=== PATIENT | female | born 1940 | race Caucasian/White ===

== ENCOUNTER 2022-02-08 12:38 | Observation (INO) | payer OTHER ==
[~2022-02-08] VITALS: Ht 165.1 cm; Wt 65.8 kg
[2022-02-08 12:42] VITALS: BP_SYST 127
--- NOTE | 2022-02-08 13:00 | NUR ---
C/O Chest pain at 0800, sub-sternal non-radiating. 3 doses of Nitro given, 325mg ASA given in route, patient in facility for Right Hip Fx. Patient is AOx4 in no acute distress and or discomfort.
--- NOTE | 2022-02-08 13:05 | NUR ---
EKG done at bedside, to read
--- NOTE | 2022-02-08 13:26 | NUR ---
Assisted patient with grabiel-care post void
[2022-02-08 13:58] LABS: BASOPHILS # (AUTO) 0.1 K/uL (0.0-0.2); BASOPHILS % (AUTO) 0.6 % (0.0-2.0); EOSINOPHILS # (AUTO) 0.8 K/uL (0.0-0.4); EOSINOPHILS % (AUTO) 6.5 % (0.0-4.0); HEMATOCRIT 31.8 % (36-48); HEMOGLOBIN 9.9 g/dL (12.0-16.0); LYMPHOCYTES # (AUTO) 1.7 K/uL (1.0-5.5); LYMPHOCYTES % (AUTO) 14.6 % (20.5-51.5); MEAN CORPUSCULAR HEMOGLOBIN 21 pg (27-31); MEAN CORPUSCULAR HGB CONC 31 % (32-36); MEAN CORPUSCULAR VOLUME 66 fL (79.0-98.0); MONOCYTES # (AUTO) 1.1 K/uL (0.0-1.0); MONOCYTES % (AUTO) 9.5 % (1.7-9.3); NEUTROPHILS # (AUTO) 8.2 K/uL (1.8-7.7); NEUTROPHILS % (AUTO) 68.8 % (40.0-70.0); PLATELET COUNT (AUTO) 388 K/uL (130-430); RED BLOOD CELL COUNT(AUTO) 4.81 MIL/uL (4.2-6.2); RED CELL DISTRIBUTION WIDTH 14.4 % (9.0-15.0); WHITE BLOOD COUNT (AUTO) 11.9 K/uL (4.8-10.8)
[2022-02-08] MEDS ORDERED: traMADol HCL HCL 50 MG TABLET (ULTRAM) PO ONE (14:00)
[2022-02-08 14:08] LABS: ANION GAP 5 (5-15); CALCIUM 9.3 mg/dL (8.4-11.0); CHLORIDE 103 mmol/L (98-107); CREATININE 0.96 mg/dL (0.55-1.30); GLUCOSE 103 mg/dL (70-99); POTASSIUM 4.2 mmol/L (3.5-5.1); UREA NITROGEN, BLOOD 21 mg/dL (8-21)
[2022-02-08 14:13] LABS: ALANINE AMINOTRANSFERASE 43 U/L (12-78); ALBUMIN 2.9 g/dL (3.4-4.8); ASPARTATE AMINOTRANSFERASE 22 U/L (10-37); TOTAL BILIRUBIN 0.4 mg/dL (0.0-1.0)
--- NOTE | 2022-02-08 15:06 | NUR ---
RECEIVED PT FROM QUINTEN MANDUJANO. ASSUMED CARE.
--- NOTE | 2022-02-08 15:30 | NUR ---
# 22 gauge angiocath placed to RFA. Use of asceptic technique. Opsite placed over site. Blood return noted. Blood for lab drawn from site. Flushed with 10 cc of normal saline. No evidence of infiltration noted. Patient tolerated well.
[2022-02-08] MEDS ORDERED: PERCOCET PO (16:38)
[2022-02-08] MEDS ORDERED: FER300L PO (16:38)
[2022-02-08] MEDS ORDERED: ASPI-1393 PO (16:38)
[2022-02-08] MEDS ORDERED: LYR50 PO (16:38)
[2022-02-08] MEDS ORDERED: DOCU-144 PO (16:38)
[2022-02-08] MEDS ORDERED: LOSA50TA3 PO (16:38)
[2022-02-08] MEDS ORDERED: CELE200C PO (16:38)
[2022-02-08] MEDS ORDERED: PERC10 PO (16:38)
[2022-02-08] MEDS ORDERED: VITA1CAP PO (16:38)
[2022-02-08] MEDS ORDERED: NITSL SL (16:38)
[2022-02-08] MEDS ORDERED: TRAM50TA PO (16:38)
[2022-02-08] MEDS ORDERED: MULT-1089 PO (16:38)
[2022-02-08] MEDS ORDERED: LOVA40TA75 PO (16:38)
--- NOTE | 2022-02-08 16:39 | NUR ---
MED REC AND BELONGINGS COMPLETED.
--- NOTE | 2022-02-08 17:09 | NUR ---
Admit bed requested Patient will be admitted to care of . Admitted to TELEMETRY unit. Diagnosis RULE OUT ACS Inpatient (Yes or No) NO Observation (Yes or No) YES Orientation concerns or request close to nursing station (Yes or No) NO Covid Status PENDING On vent or bipap NO Isolation requirements PENDING Needs a sitter NO From Home (Yes or if No enter name of facility) [facility] Requires Dialysis (Yes or No) NO Med Rec Completed (Yes of No) YES
--- NOTE | 2022-02-08 19:28 | NUR ---
ENDORSED PT TO QUINTEN ROJAS. ALL QUESTIONS AND CONCERNS ADDRESSED.
--- NOTE | 2022-02-08 20:08 | NUR ---
THIS IS TELEMETRY OBSERVATION NOTE FOR AN 81 YEAR OLD FEMALE RULE OUT ACS STATUS POST RIGHT HIP SURGERY AT ANOTHER FACILITY. PATIENT NOTES RIGHT LEG AND CHEST PAIN ON ADMISSION. TOOK TRAMADOL AT 2 PM AND HAD POSITIVE RELIEF.
--- NOTE | 2022-02-08 20:08 | NUR ---
Patient will be admitted to care of MD [facility]. Admitted to TELE unit. Will go to room 119A. Complete and up to date summary report printed. SBAR report given at bedside to QUINTEN [place] with opportunity for questions. Son at bedside during admit to floor.
[2022-02-08 20:10] VITALS: BP_SYST 149
[2022-02-09] VITALS (7 sets, daily range): BP systolic 124–152
[2022-02-09] MEDS ORDERED: ACETAMINOPHEN 325 MG TABLET PO PRN
[2022-02-09] MEDS ORDERED: ONDANSETRON HCL 4 MG/2 ML VIAL IVP PRN
[2022-02-09] MEDS ORDERED: NALOXONE HCL 0.4 MG/ML AMP (NARCAN) IVP PRN
[2022-02-09] MEDS ORDERED: TEMAZEPAM 7.5 MG CAPSULE PO PRN
[2022-02-09] MEDS ORDERED: MORPHINE 2 MG/ML INJ. SYRINGE IVP PRN
[2022-02-09] MEDS: 0.45% NS 500 ML IV SCH ×3 (02:51→13:20)
--- NOTE | 2022-02-09 05:40 | NUR ---
CONSULTATION PAGED/CALLED Reason for Consultation: RULE OUT ACS Person Who was Notified: DR Remington BUTLER Consulting Physician: MISTY Auto [employer] Repairer Specialty: Ordering Physician: HIRAM
[2022-02-09] MEDS: NITROGLYCERIN 0.4 MG TAB.SUBL SL PRN ×2 (07:51→08:03)
--- NOTE | 2022-02-09 07:51 | NUR ---
PT GIVEN NITRO SL FOR CHEST PAIN.
--- NOTE | 2022-02-09 08:03 | NUR ---
ANOTHER DOSE OF NITRO GIVEN.
--- NOTE | 2022-02-09 09:36 | NUR ---
PT GIVEN IVP MORPHINE AFTER A NEW IV ACCESS STARTED.
--- NOTE | 2022-02-09 09:52 | NUR ---
TALKED TO LUMBER STICKER RE PT'S FAMILY WANTS TO TRANSFER PT TO [facility].
--- NOTE | 2022-02-09 10:03 | NUR ---
PA OF DR BUTLER HERE AND SEEN PT. CALLED [facility] FOR THE COPY OF THE EKG.
--- NOTE | 2022-02-09 10:10 | NUR ---
TALKED TO PT'S DAUGHTER AND SON RE PROCESS OF TRANSFERRING PT TO OTHER HOSPITAL. THAT WE NEED ACCEPTING DOCTOR, ROOM NUMBER AND WE ARE WORKING ON THE ORDER TO TRANSFER AND APPROVAL FROM INSURANCE.
[2022-02-09] MEDS ORDERED: ATORVASTATIN 20 MG TABLET PO ONE ×3 (10:30→13:15)
[2022-02-09] MEDS ORDERED: ASPIRIN 81 MG TAB.CHEW PO ONE (10:30)
--- NOTE | 2022-02-09 10:35 | NUR ---
SPOKE WITH DR GANDHI, DR GUADALUPE IS COVERING. DR GANDHI SAID IF PT NEEDS HIGHER LEVEL OF CARE PER [employer] THEN WE CAN TRANSFER PT. IF NOT, PT WILL STAY. Addendum: 02/09/22 at 1036 by Bony Villarreal RN INFORMED PA OF DR Remington BUTLER.
[2022-02-09 10:36] LABS: BASOPHILS # (AUTO) 0.1 K/uL (0.0-0.2); BASOPHILS % (AUTO) 0.8 % (0.0-2.0); EOSINOPHILS # (AUTO) 0.6 K/uL (0.0-0.4); EOSINOPHILS % (AUTO) 6.9 % (0.0-4.0); HEMATOCRIT 31.2 % (36-48); HEMOGLOBIN 9.9 g/dL (12.0-16.0); LYMPHOCYTES # (AUTO) 1.6 K/uL (1.0-5.5); LYMPHOCYTES % (AUTO) 17.9 % (20.5-51.5); MEAN CORPUSCULAR HEMOGLOBIN 21 pg (27-31); MEAN CORPUSCULAR HGB CONC 32 % (32-36); MEAN CORPUSCULAR VOLUME 66 fL (79.0-98.0); MONOCYTES # (AUTO) 0.8 K/uL (0.0-1.0); MONOCYTES % (AUTO) 8.6 % (1.7-9.3); PLATELET COUNT (AUTO) 401 K/uL (130-430); RED BLOOD CELL COUNT(AUTO) 4.73 MIL/uL (4.2-6.2); RED CELL DISTRIBUTION WIDTH 14.5 % (9.0-15.0); WHITE BLOOD COUNT (AUTO) 9.1 K/uL (4.8-10.8)
[2022-02-09 10:41] LABS: NEUTROPHILS % (AUTO) 65.8 % (40.0-70.0)
[2022-02-09 10:54] LABS: ANION GAP 5 (5-15); CALCIUM 8.9 mg/dL (8.4-11.0); CHLORIDE 105 mmol/L (98-107); CHOLESTEROL 141 mg/dL (<200); CREATININE 0.89 mg/dL (0.55-1.30); GLUCOSE 119 mg/dL (70-99); POTASSIUM 4.2 mmol/L (3.5-5.1); UREA NITROGEN, BLOOD 20 mg/dL (8-21)
--- NOTE | 2022-02-09 11:05 | NUR ---
LEFT MESSAGE WITH DEANNA SARABIA PT'S FAMILY TRANSFER TO [facility]
[2022-02-09 11:14] LABS: PROTHROMBIN TIME 10.1 SECS (9.5-12.5)
[2022-02-09] MEDS ORDERED: HEPARIN SODIUM,PORCINE 2000 UNITS/0.4 ML BOLUS IVP PRN (11:15)
[2022-02-09] MEDS ORDERED: HEPARIN SODIUM,PORCINE 5,000 UNITS/ML VIAL IV ONE (11:15)
[2022-02-09] MEDS ORDERED: HEPARIN 25,000 UNITS/D5W 250ML 250 ML IV PRN (11:15)
[2022-02-09] MEDS ORDERED: HEPARIN SODIUM,PORCINE 3000 UNITS/0.6 ML BOLUS IVP PRN (11:15)
[2022-02-09] MEDS ORDERED: METOPROLOL SUCCINATE 25 MG TAB.SR.24H (TOPROL XL) PO ONE (13:15)
[2022-02-09] MEDS ORDERED: LOSARTAN POTASSIUM 25 MG TABLET PO ONE (13:15)
--- NOTE | 2022-02-09 13:16 | NUR ---
LATE ENTRY: [facility]/HCP CM MS HUERTA CALLED THAT PT'S REQUEST TO TRANSFER TO [facility] WILL NOT MATERIALIZE. LATERAL TRANSFER, SAME LEVEL OF CARE IS NOT ALLOWED BY THE INSURANCE. [facility] WILL BE FINED $50,000. 00 EACH, IF LATERAL TRANSFER WOULD HAVE HAPPENED. QUINTEN DIAZ WAS NOT AVAILABLE TO TALK TO MS HUERTA AND I WAS ASKED BY JAIMEE TO GIVE THIS MESSAGE TO THE RN EMILY. JAIMEE DEANNA ADDED THAT SHE SPOKE TO THE PT'S DAUGHTER BEULAH, SO SHE IS AWARE THAT TRANSFER WILL NOT HAPPEN.
--- NOTE | 2022-02-09 18:49 | NUR ---
FOR DISCHARGE CLEARED FOR DISCHARGE PER DR JAY-MINERALOGY PROFESSOR AND DR GUADALUPE-ATTENDING MD. SPOKE TO HAILE FROM [facility], PATIENT WILL GO BACK TO [facility]. WILL CALL AMBULANCE
--- NOTE | 2022-02-09 19:20 | NUR ---
[facility] they said they need hard copy auth for transfer hcp welfare case worker called and spoke with luca she going to email hard copy auth to [facility] and will call back with eta
--- NOTE | 2022-02-09 19:30 | NUR ---
PT ENDORSED TO NIGHT NURSE KEMAR , PT IS FOR DC TO [facility].
--- NOTE | 2022-02-09 19:45 | NUR ---
OPENING NOTES Received report from day shift nurse, informed that pt is to be discharged soon; teaching and paperwork completed, transportation with ambulance arranged. Pt is resting but eager to leave. Son and [id number] are at bedside. Son has pt's belongings and IV has been removed. Pt will be discharged in gown.
--- NOTE | 2022-02-09 20:15 | NUR ---
PT DISCHARGED AND OFF UNIT AT 2044 Report was given to Dawna, receiving nurse at [facility] and has room 104A prepared for pt. Report was given to DAISY Cesar from [facility] unit 614 Patient left the unit by elmo escorted by son at 2044.
--- NOTE | 2022-02-09 20:47 | NUR ---
D/C Patient Patient given medication reconciliation form and D/C instructions. Exit Care provided. Patient verbalized understanding. MD discussed with patient the results and treatment provided. Patient in stable condition, ID band removed. IV catheter removed, intact and dressing applied, no active bleeding. Patient educated on pain management. All belongings sent with patient.
[2022-02-10] MEDS ORDERED: ATORVASTATIN 20 MG TABLET PO SCH (09:00)
[2022-02-10] MEDS ORDERED: LOSARTAN POTASSIUM 25 MG TABLET PO SCH (09:00)
[2022-02-10] MEDS ORDERED: ASPIRIN 81 MG TAB.CHEW PO SCH (09:00)
[2022-02-10] MEDS ORDERED: METOPROLOL SUCCINATE 25 MG TAB.SR.24H (TOPROL XL) PO SCH (09:00)
--- NOTE | 2022-02-14 16:57 | NUR ---
IV ADMINISTRATION END TIME (Observation Patients ONLY): late entry IV infusion of Nacl started at 02:51 on 02/09/22 and ended at 20:00 02/09/22 . Heparin drip at 9 ml/hr started at 11:50 on 02/09/22 and ended at 20:00 02/09/22 .
== END 2022-02-09 20:47 ==
LOC: SED 12:38 → STU 16:40
PROVIDERS: ADMIT Internal Medicine; ATTEND Internal Medicine
DX: R07.89 Other chest pain (principal); Z20.822 Contact with and (suspected) exposure to COVID-19; I10 Essential (primary) hypertension; Z79.899 Other long term (current) drug therapy
CPT/HCPCS: 80053; 85025 ×2; 84484 ×2; 36415 ×2; 93005 ×2; 71045; 99285; 87426; 96361; 96365; 96366; 96375; 96376; 80048; 82465; 85610; 85730; 93306; G0378 ×2; J1644 ×2; J2270